=== PATIENT | female | born 1950 | race African-American/Black ===

== ENCOUNTER 2017-01-01 06:18 | Day surgery (SDC) | payer MEDICARE, OTHER ==
--- NOTE | 2016-12-31 13:25 | Pre-Procedure Note/Attestation ---
Pre-Procedure Note/Attestation Complete Prior to Procedure Planned Procedure: left Procedure Narrative: phaco with IOL< OS Indications for Procedure Pre-Operative Diagnosis: cataract Attestation I attest that I discussed the nature of the procedure; its benefits; risks and complications; and alternatives (and the risks and benefits of such alternatives ), prior to the procedure, with the patient (or the patient's legal desk representative). I attest that, if there was a reasonable possibility of needing a blood transfusion, the patient (or the patient's legal desk representative) was given the [facility] standardized written summary, pursuant to the Rene Moi Blood Safety Act ([place] Health and Safety Code # 1645, as amended). I attest that I re-evaluated the patient just prior to the surgery and that there has been no change in the patient's H&P, except as documented below: KASIA JUNE Dec 31, 2016 13:25
--- NOTE | 2016-12-31 13:27 | Opthalmology H&P ---
Ophthalmology H&P H&P Chief Complaint: decreased vision in left eye HPI Vision Affects Ability to: read, focus/use eyes together, manage personal affairs HPI Narrative blurry vision Exam Visual Acuity: OD: 20/30 OS: 20/60 Tension: OD: 12 OS:11 Eye Exam: normal OU: anterior chambers, corneas, external exam, fundus exam, levator function, marginal reflex distance, palpebral fissure-width, findings: lens - OD: cortical OS: cortical Assessment/Plan Diagnosis: (1) Cataract Treatment Plan: cataract extraction w/ lens implant Goals of Treatment: improvement of vision, enhance quality of life Attestation Attestation The risks and benefits of the surgery as well as alternative procedures were explained to the patient in detail. KASIA JUNE Dec 31, 2016 13:27
[2017-01-01] VITALS (11 sets, daily range): BP systolic 127–150; BP diastolic 53–77
[~2017-01-01] VITALS: Ht 160 cm; Wt 110.3 kg
[2017-01-01] MEDS ORDERED: EPINEPHrine 1mg/1ml Amp ONE (07:00)
[2017-01-01] MEDS ORDERED: Pred Forte 1% Opth Susp 1ml ONE (07:00)
[2017-01-01] MEDS ORDERED: Dexamethasone 4mg/ml vial ONE ×2 (07:00)
[2017-01-01] MEDS ORDERED: Maxitrol Opth Oint 3.5gm ONE (07:00)
[2017-01-01] MEDS ORDERED: BSS 500ml btl ONE (07:00)
[2017-01-01] MEDS ORDERED: acetaZOLAMIDE 500mg Inj IVP ONE (07:00)
[2017-01-01] MEDS ORDERED: Akten 3.5% 1ml Btl LEFT EYE ONE (07:00)
[2017-01-01] MEDS: Cyclopentolate 1% Opth Sol LEFT EYE SCH ×3 (07:52→08:08)
[2017-01-01] MEDS: Tropicamide 1% Opth Soln LEFT EYE SCH ×3 (07:53→08:08)
[2017-01-01] MEDS: Phenylephrine 10% Opth Soln 5ml LEFT EYE SCH ×3 (07:53→08:08)
[2017-01-01] MEDS: Diclofenac Sod 0.1% Op Soln LEFT EYE SCH ×3 (07:54→08:08)
[2017-01-01] MEDS: Tobramycin Op Soln 0.3% LEFT EYE SCH ×3 (07:55→08:09)
[2017-01-01] MEDS ORDERED: Sterile Water Irrig 1000ml IRRIG ONE (08:00)
[2017-01-01] MEDS ORDERED: fentaNYL 100 mcg/2 mL IV ONE (08:00)
[2017-01-01] MEDS ORDERED: Propofol 10mg/ml 20ml IV ONE (08:00)
[2017-01-01] MEDS ORDERED: LR 1000ml ONE (08:00)
[2017-01-01] MEDS ORDERED: Midazolam 2mg/2ml Inj ONE (08:00)
[2017-01-01] MEDS ORDERED: NS Irrig 1000ml ONE (08:00)
[2017-01-01] MEDS ORDERED: LR 1000ml 1,000 ML IVLG SCH (08:57)
--- NOTE | 2017-01-01 08:57 | Anethesia Preoperative Eval ---
Anesthesia Pre-op PMH/ROS General Date of Evaluation: Jan 01, 2017 Time of Evaluation: 08:28 Anesthesiologist: Vazquez ASA Score: ASA 3 Mallampati Score Class I : Soft palate, uvula, fauces, pillars visible Class II: Soft palate, uvula, fauces visible Class III: Soft palate, base of uvula visible Class IV: Only hard plate visible Mallampati Classification: Class II Surgeon: Maria E Diagnosis: L eye cataract Surgical Procedure: L eye cataract extration Anesthesia History: none Family History: no anesthesia problems Allergies: Coded Allergies: IODINE AND IODIDE CONTAINING PRODUC (Verified Allergy, Mild, 12/30/16) BENAZEPRIL (Verified Adverse Reaction, Severe, " SEVERE COUGHING", 01/01/17 ) Medications: see eMAR Past Medical History Cardiovascular: Reports: HTN, Denies: CAD, [place], arrhythmia, other, valve dz Pulmonary: Denies: COPD, MANUEL, asthma, other Gastrointestinal/Genitourinary: Reports: GERD Neurologic/Psychiatric: Denies: CVA, TIA, dementia, depression/anxiety, other Endocrine: Reports: hypothyroidism, Denies: DM, other, steroids HEENT: Reports: cataract (L), cataract (R), Denies: [place] (L), [place] (R), glaucoma, other Hematology/Immune: Denies: DVT, anemia, bleeding disorder, other Musculoskeletal/Integumentary: Denies: DDD, DJD, OA, RA, edema, other Other: obesity PMH Narrative: as above PSxH Narrative: laparoscopic hernia repair Anesthesia Pre-op Phys. Exam Physician Exam Last Vital Signs Date Time Temp Pulse Resp B/P Pulse Ox O2 Delivery O2 Flow Rate FiO2 01/01/17 08:35 97.2 59 18 127/74 96 Room Air Constitutional: NAD Neurologic: CN 2-12 intact Cardiovascular: RRR Respiratory: CTA Gastrointestinal: S/NT/ND Airway Exam Mallampati Score: Class II MO: full Neck: flexible ROM: full Teeth: missing Dentures: lower, upper Anesthesia Pre-op A/P Labs see chart Studies Pre-op Studies: EKG - Nsr Risk Assessment & Plan Assessment: ASA 3 Plan: MAC Status Change Before Surgery: No Pre-Antibiotics Drug: none GENARO KILLIAN M.D. Jan 01, 2017 08:57
[2017-01-01] MEDS ORDERED: DiphenhydrAMINE 50mg/ml Inj IVP PRN (09:00)
[2017-01-01] MEDS ORDERED: fentaNYL 100 mcg/2 mL IV PRN (09:00)
--- NOTE | 2017-01-01 09:53 | Immediate Post-Op Evaluation ---
Immediate Post-Op Evalulation Immediate Post-Op Evalulation Procedure: L eye cataract extraction with IOL Date of Evaluation: Jan 01, 2017 Time of Evaluation: 09:23 IV Fluids: 200 Blood Products: none Estimated Blood Loss: none Urinary Output: none Blood Pressure Systolic: 136 Blood Pressure Diastolic: 72 Pulse Rate: 62 Respiratory Rate: 20 O2 Sat by Pulse Oximetry: 99 Temperature (Fahrenheit): 97.4 Pain Score (1-10): 2 Nausea: No Vomiting: No Complications none Patient Status: awake, patent, none Hydration Status: adequate GENARO KILLIAN M.D. Jan 01, 2017 09:53
--- NOTE | 2017-01-01 11:12 | 48 Hour Post Anesthesia Eval ---
Post Anesthesia Evaluation Procedure: L eye cataract extraction with IOL Date of Evaluation: Jan 01, 2017 Time of Evaluation: 11:11 Blood Pressure Systolic: 136 0: 58 Pulse Rate: 64 Respiratory Rate: 20 Temperature (Fahrenheit): 97.2 O2 Sat by Pulse Oximetry: 98 Airway: patent Nausea: No Vomiting: No Pain Intensity: 2 Hydration Status: adequate Cardiopulmonary Status: stable Mental Status/LOC: patient returned to baseline Follow-up Care/Observations: n/a Post-Anesthesia Complications: none Follow-up care needed: ready to discharge GENARO KILLIAN M.D. Jan 01, 2017 11:12
[2017-01-01] MEDS ORDERED: LOSARTAN POTASS50 MG ORAL (11:33)
[2017-01-01] MEDS ORDERED: NEURONTIN100 MG ORAL (11:34)
[2017-01-01] MEDS ORDERED: HYDROCHLOROTHIA25 MG ORAL (11:35)
--- NOTE | 2017-01-01 12:11 | Brief Operative Note ---
Immediate Post Operative Note Operative Note Chief Complaint: blurry vision Pre-op Diagnosis: cataract Procedure: phaco with IOL, OS Post-op Diagnosis: Pseudophakia Post-op Diagnosis: same as pre-op Findings: consistent w/pre-op dx studies Surgeon: Maria E Anesthesiologist: Vazquez Anesthesia: MAC Specimen: none Complications: none Estimated Blood Loss: none Drains: none Implant(s) used?: Yes KASIA JUNE Jan 01, 2017 12:11
--- NOTE | 2017-01-01 12:12 | Operative Note - PDOC ---
Operative Note Operative Note Date of Operation/Procedure: Jan 01, 2017 Chief Complaint: blurry vision Pre-op Diagnosis: cataract Procedure: phaco with IOL, OS Post-op Diagnosis: Pseudophakia Post-op Diagnosis: same as pre-op Operative Findings: consistent w/pre-op dx studies Surgeon: Maria E Anesthesiologist: Vazquez Anesthesia: MAC Specimen: none Complications: none Estimated Blood Loss: none Drains: none Implant(s) used?: Yes Indications for Procedure cataract Description of Procedure This patient has been complaining visually significant cataract in the affected eye with the best corrected visual acuity under moderate glare conditions worse. The patient complains of difficulties with glare in performing activities of daily living and wants to manage personal affairs with comfort and accuracy and see well enough to move with safety at home and outdoors. ~~~ The risks, benefits and alternatives of the procedure were discussed with the patient in the office prior to scheduling surgery. All questions from the patient were answered after the surgical procedure was explained in detail. The risks of the procedure as explained to the patient include, but are not limited to, pain, infection, bleeding, loss of vision, retinal detachment, need for further surgery, loss of lens nucleus, double vision, etc. Alternative procedures were discussed which include, to do nothing or seek a second opinion. Informed consent for this procedure was obtained from the patient. The patient was referred to a primary care physician for a cardiopulmonary clearance prior to surgery, after proper evaluation was done patient was properly scheduled for outpatient surgery. The patient was brought to the operating room where the anesthesiologist established I.V. lines and cardiac monitoring leads. Mild intravenous sedation was administered.~~ The patient was then prepared with a 5% solution of povidone -iodine to the conjunctival fornix and lashes, and a 10% solution of povidone- iodine to the lids and periorbital skin. The patient was then draped in the usual sterile fashion. A lid speculum was then placed in the operative eye. A keratome blade was then used to create a biplanar incision into the anterior chamber. Viscoelastics was then instilled into the anterior chamber. A capsulorrhexis was then fashioned with an utrata forceps followed by a BSS and a cannula were then used to hydrodissect and hydro delineate the lens. Paracentesis incision was made at 3 o'clock with sharp blade. The phacoemulsification unit, after being properly adjusted~ and tested, was then used to emulsify the nucleus. Residual cortical material was aspirated with the irrigation and aspiration unit. Healon was then instilled into the anterior chamber. The corneal wound was then enlarged to the size of the optic with the ute keratome blade. The intraocular lens was then inspected for right~ power and size~ and thought to be satisfactory. Then the lens was gently placed in the capsular bag. Positioning within the capsular bag was confirmed by direct visualization. Optic centration was accomplished with a Sinskey hook. Viscoelastics~ was removed from the anterior chamber using the irrigation and aspiration unit. The corneal wound was then tested for leaks and none were found. The lid speculum were then removed. Sponge and needle counts were correct. An eye patch and shield were placed over the operative eye. The patient was taken to the recovery room in stable condition. There were no complications. The patient tolerated the procedure well. The patient was then transferred to the ambulatory surgery unit in stable and satisfactory condition , was given detailed written instructions and asked to follow up~ in the office the next day. ~ ~ Dictated & Transcribed: [facility] Ulices CASTILLO JAMES Jan 01, 2017 12:12
[2017-01-01] MEDS ORDERED: Povidone-Iodine 5% opth solution ONE (12:25)
[2017-01-01] MEDS ORDERED: BSS 15ml BTL ONE (12:26)
[2017-01-01] MEDS ORDERED: Sodium Hyaluronate 14 mg/ml 0.85ml ONE (12:27)
== END 2017-01-01 10:45 | disposition home or self-care (01) ==
LOC: SUR 06:18
DX: H26.9 Unspecified cataract (principal); I10 Essential (primary) hypertension; E03.9 Hypothyroidism, unspecified; K21.9 Gastro-esophageal reflux disease without esophagitis; E78.5 Hyperlipidemia, unspecified; E66.01 Morbid (severe) obesity due to excess calories; Z68.42 Body mass index [BMI] 45.0-49.9, adult; M17.0 Bilateral primary osteoarthritis of knee; R32 Unspecified urinary incontinence; K44.9 Diaphragmatic hernia without obstruction or gangrene; M47.12 Other spondylosis with myelopathy, cervical region; M50.30 Other cervical disc degeneration, unspecified cervical region; M51.36 Other intervertebral disc degeneration, lumbar region; M48.06 Spinal stenosis, lumbar region; Z88.8 Allergy status to other drugs, medicaments and biological substances; Z91.041 Radiographic dye allergy status; Z91.013 Allergy to seafood
CPT/HCPCS: 66984; J0171; J1100; J1120; J2250; J2704; J3010; J7120; V2632; 94003; 94150

== ENCOUNTER 2017-02-26 07:09 | Day surgery (SDC) | payer MEDICARE, OTHER ==
--- NOTE | 2017-02-25 12:50 | Opthalmology H&P ---
Ophthalmology H&P H&P Chief Complaint: decreased vision in right eye HPI Vision Affects Ability to: read, focus/use eyes together, manage personal affairs HPI Narrative blurry vision Exam Visual Acuity: OD: 20/80 OS: 20/20 Tension: OD: 18 OS: 13 Eye Exam: normal OU: external exam, palpebral fissure-width, marginal reflex distance, levator function, corneas, anterior chambers, fundus exam, findings: lens - OD: ns OS: IOL Assessment/Plan Diagnosis: (1) Cataract Treatment Plan: cataract extraction w/ lens implant Goals of Treatment: improvement of vision, enhance quality of life Attestation Attestation The risks and benefits of the surgery as well as alternative procedures were explained to the patient in detail. KASIA JUNE Feb 25, 2017 12:50
--- NOTE | 2017-02-25 12:51 | Pre-Procedure Note/Attestation ---
Pre-Procedure Note/Attestation Complete Prior to Procedure Planned Procedure: right Procedure Narrative: phaco with IOL, OD Indications for Procedure Pre-Operative Diagnosis: cataract Attestation I attest that I discussed the nature of the procedure; its benefits; risks and complications; and alternatives (and the risks and benefits of such alternatives ), prior to the procedure, with the patient (or the patient's legal account development representative). I attest that, if there was a reasonable possibility of needing a blood transfusion, the patient (or the patient's legal account development representative) was given the [facility] standardized written summary, pursuant to the Rene Moi Blood Safety Act ([place] Health and Safety Code # 1645, as amended). I attest that I re-evaluated the patient just prior to the surgery and that there has been no change in the patient's H&P, except as documented below: KASIA JUNE Feb 25, 2017 12:51
[2017-02-26] VITALS (9 sets, daily range): BP systolic 130–151; BP diastolic 64–81
[~2017-02-26] VITALS: Ht 160 cm; Wt 111.6 kg
[~2017-02-26 07:09] MED LIST: Akten 3.5% 1ml Btl LEFT EYE ONE; Akten 3.5% 1ml Btl RIGHT EYE ONE; BSS 15ml BTL ONE; Bupivacaine 0.75% 30ml vial INJ ONE; Carbachol 0.01% Op Soln 1.5ml vial ONE; Cyclopentolate 1% Opth Sol LEFT EYE SCH; EPINEPHrine 1mg/1ml Amp ONE; HYDROCHLOROTHIA25 MG ORAL; LOSARTAN POTASS50 MG ORAL; Lidocaine 1% MPF 10mg/ml 5ml ONE; Lidocaine 2% MPF 5ml Vial INJ ONE; Lidocaine 4% Amp ONE; NEURONTIN100 MG ORAL; Phenylephrine 10% Opth Soln 5ml LEFT EYE SCH; Pilocarpine 2% Opth Soln ONE; Povidone-Iodine 5% opth solution ONE; Sodium Hyaluronate 10 mg/ml 0.85ml ONE; Tobramycin Op Soln 0.3% LEFT EYE SCH; Tropicamide 1% Opth Soln LEFT EYE SCH; acetaZOLAMIDE 500mg Inj ONE
[2017-02-26] MEDS ORDERED: Cyclopentolate 1% Opth Sol RIGHT EYE SCH (08:00)
[2017-02-26] MEDS ORDERED: Tobramycin Op Soln 0.3% RIGHT EYE SCH (08:00)
[2017-02-26] MEDS ORDERED: Tropicamide 1% Opth Soln RIGHT EYE SCH (08:00)
[2017-02-26] MEDS ORDERED: Akten 3.5% 1ml Btl RIGHT EYE ONE (08:00)
[2017-02-26] MEDS ORDERED: Phenylephrine 10% Opth Soln 5ml RIGHT EYE SCH (08:00)
[2017-02-26] MEDS: Cyclopentolate 1% Opth Sol RIGHT EYE SCH ×3 (08:13→08:37)
[2017-02-26] MEDS: Tropicamide 1% Opth Soln RIGHT EYE SCH ×3 (08:13→08:37)
[2017-02-26] MEDS: Phenylephrine 10% Opth Soln 5ml RIGHT EYE SCH ×3 (08:13→08:37)
[2017-02-26] MEDS: Tobramycin Op Soln 0.3% RIGHT EYE SCH ×3 (08:14→08:38)
[2017-02-26] MEDS ORDERED: EPINEPHrine 1mg/1ml Amp ONE (10:00)
[2017-02-26] MEDS ORDERED: Dexamethasone 4mg/ml vial ONE (10:00)
[2017-02-26] MEDS ORDERED: BSS PLUS ONE (10:00)
[2017-02-26] MEDS ORDERED: fentaNYL 100 mcg/2 mL IV ONE (10:00)
[2017-02-26] MEDS ORDERED: Tetracaine 0.5% Opth Soln ONE ×2 (10:00→10:32)
[2017-02-26] MEDS ORDERED: Sterile Water Irrig 1000ml IRRIG ONE (10:00)
[2017-02-26] MEDS ORDERED: LR 1000ml ONE (10:00)
[2017-02-26] MEDS ORDERED: Maxitrol Opth Oint 3.5gm ONE (10:00)
[2017-02-26] MEDS ORDERED: NS Irrig 1000ml ONE (10:00)
[2017-02-26] MEDS ORDERED: Midazolam 2mg/2ml Inj ONE (10:00)
[2017-02-26] MEDS ORDERED: Pred Forte 1% Opth Susp 1ml ONE (10:00)
[2017-02-26] MEDS ORDERED: Propofol 200mg/20ml IV ONE (10:07)
[2017-02-26] MEDS ORDERED: Lidocaine 2% MPF 5ml Vial INJ ONE (10:26)
[2017-02-26] MEDS ORDERED: Bupivacaine 0.75% 30ml vial INJ ONE (10:26)
[2017-02-26] MEDS ORDERED: Carbachol 0.01% Op Soln 1.5ml vial ONE (10:32)
[2017-02-26] MEDS ORDERED: BSS 15ml BTL ONE (10:32)
[2017-02-26] MEDS ORDERED: Sodium Hyaluronate 10 mg/ml 0.85ml ONE (10:33)
[2017-02-26] MEDS ORDERED: Akten 3.5% 1ml Btl ONE (10:33)
[2017-02-26] MEDS ORDERED: Povidone-Iodine 5% opth solution ONE (10:34)
[2017-02-26] MEDS ORDERED: LR 1000ml 1,000 ML IVLG SCH (10:35)
--- NOTE | 2017-02-26 10:35 | Anethesia Preoperative Eval ---
Anesthesia Pre-op PMH/ROS General Date of Evaluation: Feb 26, 2017 Time of Evaluation: 10:12 Anesthesiologist: Vazquez ASA Score: ASA 2 Mallampati Score Class I : Soft palate, uvula, fauces, pillars visible Class II: Soft palate, uvula, fauces visible Class III: Soft palate, base of uvula visible Class IV: Only hard plate visible Mallampati Classification: Class II Surgeon: Maria E Diagnosis: R eye catarat Surgical Procedure: R eye cataract extraction Anesthesia History: none Family History: no anesthesia problems Allergies: Coded Allergies: IODINE AND IODIDE CONTAINING PRODUC (Verified Allergy, Mild, 12/30/16) BENAZEPRIL (Verified Adverse Reaction, Severe, " SEVERE COUGHING", 01/01/17 ) Past Medical History Cardiovascular: Reports: HTN, Denies: CAD, [place], valve dz, arrhythmia, other Pulmonary: Reports: MANUEL, Denies: asthma, COPD, other Gastrointestinal/Genitourinary: Reports: GERD, Denies: CRI, ESRD, other Neurologic/Psychiatric: Denies: dementia, CVA, depression/anxiety, TIA, other Endocrine: Denies: DM, hypothyroidism, steroids, other HEENT: Reports: cataract (L), cataract (R), Denies: glaucoma, [place] (L), [place] (R), other Hematology/Immune: Denies: anemia, DVT, bleeding disorder, other Musculoskeletal/Integumentary: Reports: DJD, Denies: OA, RA, DDD, edema, other Other: obesity PMH Narrative: as above PSxH Narrative: Hernia repair cataract L eye Anesthesia Pre-op Phys. Exam Physician Exam Last Vital Signs Date Time Temp Pulse Resp B/P (MAP) Pulse Ox O2 Delivery O2 Flow Rate FiO2 02/26/17 08:26 97.0 59 18 136/81 Room Air Constitutional: NAD Neurologic: CN 2-12 intact Cardiovascular: RRR, no M/R/G Respiratory: CTA Gastrointestinal: other - obesity Airway Exam Mallampati Score: Class II MO: full Neck: stiff Teeth: missing Dentures: upper, lower Anesthesia Pre-op A/P Labs see chart Studies Pre-op Studies: EKG - NSR Risk Assessment & Plan Assessment: ASA 2 Plan: MAC Status Change Before Surgery: No Pre-Antibiotics Drug: none GENARO KILLIAN M.D. Feb 26, 2017 10:35
[2017-02-26] MEDS ORDERED: acetaZOLAMIDE 500mg Inj ONE (10:43)
[2017-02-26] MEDS ORDERED: DiphenhydrAMINE 50mg/ml Inj IVP PRN (10:45)
[2017-02-26] MEDS ORDERED: fentaNYL 100 mcg/2 mL IV PRN (10:45)
--- NOTE | 2017-02-26 11:53 | Immediate Post-Op Evaluation ---
Immediate Post-Op Evalulation Immediate Post-Op Evalulation Procedure: R eye cataract extraction with IOL Date of Evaluation: Feb 26, 2017 Time of Evaluation: 11:26 IV Fluids: 300 Blood Products: none Estimated Blood Loss: none Urinary Output: none Blood Pressure Systolic: 136 Blood Pressure Diastolic: 72 Pulse Rate: 76 Respiratory Rate: 20 O2 Sat by Pulse Oximetry: 98 Temperature (Fahrenheit): 97.6 Pain Score (1-10): 1 Nausea: No Vomiting: No Complications none Patient Status: awake, patent, none Hydration Status: adequate GENARO KILLIAN M.D. Feb 26, 2017 11:53
--- NOTE | 2017-02-26 14:38 | 48 Hour Post Anesthesia Eval ---
Post Anesthesia Evaluation Procedure: R eye cataract extraction with IOL Date of Evaluation: Feb 26, 2017 Time of Evaluation: 14:37 Blood Pressure Systolic: 142 0: 64 Pulse Rate: 72 Respiratory Rate: 20 Temperature (Fahrenheit): 97.6 O2 Sat by Pulse Oximetry: 99 Airway: patent Nausea: No Vomiting: No Pain Intensity: 1 Hydration Status: adequate Cardiopulmonary Status: stable Mental Status/LOC: patient returned to baseline Follow-up Care/Observations: n/a Post-Anesthesia Complications: none Follow-up care needed: ready to discharge GENARO KILLIAN M.D. Feb 26, 2017 14:38
--- NOTE | 2017-02-27 09:18 | Brief Operative Note ---
Immediate Post Operative Note Operative Note Chief Complaint: blurry vision Pre-op Diagnosis: cataract, OD Procedure: phaco with IOL, OD Post-op Diagnosis: Pseudophakia Post-op Diagnosis: same as pre-op Findings: consistent w/pre-op dx studies Surgeon: Maria E Anesthesiologist: Vazquez Anesthesia: MAC Specimen: none Complications: none Fluids: LR Estimated Blood Loss: none Drains: none Implant(s) used?: Yes KASIA JUNE Feb 27, 2017 09:18
--- NOTE | 2017-02-27 10:43 | Operative Note - PDOC ---
Operative Note Operative Note Date of Operation/Procedure: Feb 26, 2017 Chief Complaint: blurry vision Pre-op Diagnosis: cataract, OD Procedure: phaco with IOL, OD Post-op Diagnosis: Pseudophakia Post-op Diagnosis: same as pre-op Operative Findings: consistent w/pre-op dx studies Surgeon: Maria E Anesthesiologist: Vazquez Anesthesia: MAC Specimen: none Complications: none Fluids: LR Estimated Blood Loss: none Drains: none Implant(s) used?: Yes Indications for Procedure cataract Description of Procedure This patient has been complaining visually significant cataract in the affected eye with the best corrected visual acuity under moderate glare conditions worse. The patient complains of difficulties with glare in performing activities of daily living and wants to manage personal affairs with comfort and accuracy and see well enough to move with safety at home and outdoors. ~~~ The risks, benefits and alternatives of the procedure were discussed with the patient in the office prior to scheduling surgery. All questions from the patient were answered after the surgical procedure was explained in detail. The risks of the procedure as explained to the patient include, but are not limited to, pain, infection, bleeding, loss of vision, retinal detachment, need for further surgery, loss of lens nucleus, double vision, etc. Alternative procedures were discussed which include, to do nothing or seek a second opinion. Informed consent for this procedure was obtained from the patient. The patient was referred to a primary care physician for a cardiopulmonary clearance prior to surgery, after proper evaluation was done patient was properly scheduled for outpatient surgery. The patient was brought to the operating room where the anesthesiologist established I.V. lines and cardiac monitoring leads. Mild intravenous sedation was administered. The patient was then prepared with a 5% solution of povidone- iodine to the conjunctival fornix and lashes, and a 10% solution of povidone- iodine to the lids and periorbital skin. The patient was then draped in the usual sterile fashion. A lid speculum was then placed in the operative eye. A keratome blade was then used to create a biplanar incision into the anterior chamber. Viscoelastics was then instilled into the anterior chamber. A capsulorrhexis was then fashioned with an utrata forceps. BSS and a cannula were then used to hydrodissect and hydro delineate the lens. Paracentesis incision was made at 3 o'clock with sharp blade. The phacoemulsification unit, after being properly adjusted~ and tested, was then used to emulsify the nucleus followed by aspiration and irrigation of residual cortical material with the I and A unit. Healon was then instilled into the anterior chamber. The corneal wound was then enlarged to the size of the optic with the ute keratome blade. The intraocular lens was then inspected for right power and size and thought to be satisfactory. Then the lens was gently placed in the capsular bag. Positioning within the capsular bag was confirmed by direct visualization. Optic centration was accomplished with a Sinskey hook. Viscoelastic was removed from the anterior chamber using the irrigation and aspiration unit. The corneal wound was then tested for leaks and none were found. The lid speculum were then removed. Sponge and needle counts were correct. An eye patch and shield were placed over the operative eye. The patient was taken to the recovery room in stable condition. There were no complications. The patient tolerated the procedure well. The patient was then transferred to the ambulatory surgery unit in stable and satisfactory condition , was given detailed written instructions and asked to follow up~ in the office the next day. ~ ~ Dictated & Transcribed: [facility] Ulices CASTILLO JAMES Feb 27, 2017 10:43
== END 2017-02-26 12:30 | disposition home or self-care (01) ==
LOC: SUR 07:09
DX: H26.9 Unspecified cataract (principal); I10 Essential (primary) hypertension; G47.33 Obstructive sleep apnea (adult) (pediatric); K21.9 Gastro-esophageal reflux disease without esophagitis; M19.90 Unspecified osteoarthritis, unspecified site; Z91.041 Radiographic dye allergy status; Z88.8 Allergy status to other drugs, medicaments and biological substances; E66.9 Obesity, unspecified; Z68.41 Body mass index [BMI] 40.0-44.9, adult
CPT/HCPCS: 66984; J0171; J1100; J1120; J2250; J2704; J3010; J3370; J3490; J7120; V2632; 94003; 94150